=== PATIENT | male | born 1985 | race African-American/Black ===

== ENCOUNTER → 2018-03-29 | Outpatient (CLI) | payer OTHER | LOC: M.ULTRA 03-22 13:18 | DX: E04.9 Nontoxic goiter, unspecified (principal); N63.20 Unspecified lump in the left breast, unspecified quadrant ==

== ENCOUNTER → 2018-04-08 | Outpatient (CLI) | payer OTHER | LOC: M.MRI 15:33 | DX: D17.22 Benign lipomatous neoplasm of skin and subcutaneous tissue of left arm (principal); E04.9 Nontoxic goiter, unspecified ==